=== PATIENT | female | born 1985 | race Caucasian/White ===

== ENCOUNTER 2019-09-01 07:32 | Inpatient (IN) ==
[2019-09-01] MEDS ORDERED: OXYTOCIN 30 UNITS/500 ML BAG IV PRN ×3 (08:02→10:35)
[2019-09-01] MEDS ORDERED: LACTATED RINGER'S 1,000 ML IV PRN (08:02)
[2019-09-01 08:43] LABS: Hematocrit (blood only) 38.5 % (37-47); Hemoglobin 12.6 g/dL (12.0-16.0); Mean Corpuscular Hemoglobin 27.6 pg (25-34); Mean Corpuscular Volume 84.2 fL (80-100); RDW Coefficient of Variation 15.2 % (11.5-14.5); Red Blood Count 4.57 M/uL (4.2-5.4); White Blood Count 14.19 K/uL (4.8-10.8)
[2019-09-01 09:07] LABS: Mean Corpuscular Hgb Conc 32.7 g/dL (32-36); Platelet Count 133 K/uL (130-400); Platelet Estimate Decreased (Normal)
[2019-09-01] MEDS ORDERED: OXYCODONE/ACETAMINOPHEN 5mg/325mg TAB PO PRN (10:35)
[2019-09-01] MEDS ORDERED: IBUPROFEN 600 MG TAB PO PRN (10:35)
[2019-09-01] MEDS ORDERED: BENZOCAINE 20% AER SPR 82.5 GM CAN EXT PRN (10:35)
[2019-09-01] MEDS ORDERED: ACETAMINOPHEN W/CODEINE #3 1 TAB PO PRN (10:35)
[2019-09-01] MEDS ORDERED: bisacodyL 10 MG SUPP PR PRN (10:35)
[2019-09-01] MEDS ORDERED: DIPHTHERIA/TETANUS/PERTUSSIS 0.5 ML SYR/VIAL IM ONE (10:35)
[2019-09-01] MEDS ORDERED: SUPERCREAM 0.870% 15 GM JAR EXT PRN (10:35)
[2019-09-01] MEDS ORDERED: ACETAMINOPHEN 325 MG TAB PO PRN (10:35)
[2019-09-01] MEDS ORDERED: HYDROCORTISONE ACETATE 25 MG SUPP PR PRN (10:35)
--- NOTE | 2019-09-01 11:49 | Delivery Summary ---
DATE OF OPERATION: 09/01/2019 She is a 7, para 4. Blood type is O positive, group B strep negative, was admitted in spontaneous labor at 39 weeks and 2 days. She was 5-6 cm with bulging membranes. She delivered unmedicated. She did receive some IV Pitocin augmentation towards the end. At about 6 cm, membranes were ruptured surgically. Fluid was clear. She then had spontaneous contractions, but they were a good 5 minutes apart. We then started Pitocin augmentation at 2 mU and with that her contractions became closer. She went to full dilatation and delivered the infant via direct occiput anterior position over an intact perineum. There was a nuchal cord x2, which was reduced over the head. Cord was then clamped, cut by the father after we let the cord pulsate for 1 full minute before clamping. Following this, cord blood was taken. With IV Pitocin running, the placenta was removed intact. She had a small first-degree laceration and a laceration of the right labia minora. First-degree laceration was repaired with a deep suture to approximate the bulbocavernosus muscle, separate deep suture to approximate the perineal body, a running subcuticular suture to approximate the perineal skin edges. This was done after the area was infiltrated with local. Also the labia minora was infiltrated with local and this was repaired with a running Vicryl suture. Following this, a Byrd catheter was used to empty the bladder. Hemostasis was excellent. The patient tolerated the procedure well. Estimated blood loss was under 100 mL. Apgars were deferred to the nurses. I attest to the content of the Intraoperative Record and any orders documented therein. Any exception s are noted below.
[2019-09-01] MEDS: DOCUSATE SODIUM 100 MG CAP PO SCH (20:19)
[2019-09-02 06:37] LABS: Hematocrit (blood only) 35.5 % (37-47); Hemoglobin 11.7 g/dL (12.0-16.0); Mean Corpuscular Hemoglobin 27.7 pg (25-34); Mean Corpuscular Volume 84.1 fL (80-100); RDW Coefficient of Variation 15.3 % (11.5-14.5); RDW Standard Deviation 47.1 fL (36.4-46.3); Red Blood Count 4.22 M/uL (4.2-5.4); White Blood Count 13.24 K/uL (4.8-10.8)
[2019-09-02 06:48] LABS: Platelet Count 132 K/uL (130-400)
[2019-09-02 06:50] LABS: Platelet Estimate Normal (Normal)
[2019-09-02] MEDS: DOCUSATE SODIUM 100 MG CAP PO SCH (07:58)
[2019-09-02] MEDS ORDERED: PRENATAL VITAMIN 1 TAB PO SCH (08:00)
--- NOTE | 2019-09-02 12:12 | Obstetrical Progress Note ---
Date of Service September 02, 2019 Assessment & Plan Admission and Anticipated Discharge Date Admission Date: September 01, 2019 Physical Exam Physical Exam: abdomen soft and non tender no calf tenderness ambulating well vaginal bleeding scant hgb 11.7 patient requests discharge Results & Data ([facility]) Vital Signs (Past 12 Hours) Vital Signs Temp Pulse Resp BP Pulse Ox 09/02/19 07:55 36.7 C 66 16 106/70 99 09/02/19 04:45 36.6 C 80 18 107/69 95
[2019-09-02] MEDS ORDERED: bisacodyL 5 MG TABEC PO SCH (20:00)
== END 2019-09-02 13:40 | disposition home or self-care (01) | DRG 807 ==
LOC: OPB 07:32 → 4S1 07:35 → 4S2 16:51

== ENCOUNTER 2021-08-19 17:17 | Inpatient (IN) ==
[~2021-08-19 17:17] MED LIST: CITRIC ACID/SODIUM CITRATE 15 ML UDC PO SCH; cefOXitin 2,000 MG in DEXTROSE 5% 50 ML IV SCH
[2021-08-19 18:50] LABS: Appearance Urine Cloudy (Clear); Bacteria Urine Automated 4+ (Negative); Bilirubin Urine Negative (Negative); Blood Urine Negative (Negative); Color Urine Yellow; Epithelial Cell Urine Auto >30 /lpf (0-5); Glucose Urine UA Negative (Negative); Ketones Urine Negative (Negative); Leukocyte Esterase Urine 2+ (Negative); Nitrite Urine Negative (Negative); Protein Urine Negative (Negative); RBC Urine Automated 0-4 /hpf (0-4); Specific Gravity Urine 1.007 (1.000-1.030); Urobilinogen Urine Negative (Negative)
[2021-08-19 19:25] LABS: Hematocrit (blood only) 34.9 % (37-47); Hemoglobin 11.3 g/dL (12.0-16.0); Mean Corpuscular Hemoglobin 26.9 pg (25-34); Mean Corpuscular Volume 83.1 fL (80-100); RDW Standard Deviation 45.3 fL (36.4-46.3); White Blood Count 11.07 K/uL (4.8-10.8)
[2021-08-19 19:31] LABS: Albumin Level 3.3 gm/dl (3.4-5.0); BUN Creatinine Ratio 11.6 (10-20); Bilirubin,Total 0.3 mg/dl (0.2-1.0); Calcium 8.9 mg/dl (8.5-10.1); Creatinine Clr Calc Pharmacy 123.8 ml/min; Est GFR (African American) 131.6 ml/min; Est GFR (Non-African American) 113.6 ml/min; Globulin 3.4 gm/dl (2.5-4.0); Potassium 3.8 mmol/L (3.5-5.1); Total Protein 6.7 gm/dl (6.0-8.3)
[2021-08-19 19:45] LABS: Mean Corpuscular Hgb Conc 32.4 g/dL (32-36); Platelet Count 107 K/uL (130-400)
[2021-08-19 19:46] LABS: Platelet Estimate Decreased (Normal)
[2021-08-19 20:03] LABS: Rubella IgG Ab Immune (Immune)
--- NOTE | 2021-08-19 20:04 | Ultrasound Report ---
US OB limited HISTORY: 35 years-old Female Limited care oligohydramnios COMPARISON: None TECHNIQUE: Multiple real-time sonographic images of the deep pelvic structures were obtained transabd ominally assessing grayscale appearance FINDINGS: HOLLIS of 3.2. Single living intrauterine gestation is in cephalic positioning, heart rate measure d at 135 bpm. Abdominal circumference is 37.3 cm, correlating with estimated gestational age of 41 we eks 2 days. Femur length is 7.2 cm correlating with estimated gestational age of 40 weeks and 0 days. BPD is 10.0 cm correlating with estimated gestational age of 40 weeks and 6 days. IMPRESSION: 1. Single living intrauterine gestation in cephalic positioning. 2. Oligohydramnios, HOLLIS of 3.2. ACT 112: Negative or not required by law. The above report was generated using voice recognition software. It may contain grammatical, syntax o r spelling errors. Electronically signed by: Ronald Doyle M.D. 08/19/2021 8:02 PM
[2021-08-19] MEDS ORDERED: ERYTHROMYCIN OP OINT 1 GM PKT ONE (20:29)
[2021-08-19] MEDS ORDERED: PHYTONADIONE PED 1 MG/0.5ML AMP/SYRG ONE (20:29)
[2021-08-19] MEDS ORDERED: HEPATITIS B VACCINE RECOMBIN 10 MCG/0.5 ML VIAL IM ONE (20:30)
[2021-08-19] MEDS ORDERED: LACTATED RINGER'S 1,000 ML IV SCH ×2 (20:30→22:45)
[2021-08-19 20:41] LABS: ALC (manual) 2.99 K/uL (1.2-3.4); ANC (manual) 7.42 K/uL (1.4-6.5); Eosinophils # (manual) 0.22 K/uL (0-0.5); Lymphocytes # (manual) 2.99 K/uL (1.2-3.4); Monocytes # (manual) 0.44 K/uL (0.11-0.59); Neutrophils # (manual) 7.42 K/uL (1.4-6.5)
--- NOTE | 2021-08-19 20:43 | History and Physical Report ---
DATE OF ADMISSION: 08/19/2021 CHIEF COMPLAINT: Severe hip and back pain. Intrauterine at 39+ weeks' gestation. Desire fo r permanent sterilization and very little care. HISTORY OF PRESENT ILLNESS: The patient is a 35-year-old 7, para 4, who has had 2 spontaneou s ABs. Her due date is 08/25/2021. Her last visit in the office was at about 20 weeks and she had n o blood work done at all. Her obstetrical history is as follows: 2007, she was induced at a bout 36-37 weeks, it was a 48-hour induction with 3-hour push; the induction was due to suspected mac rosomia and at that gestation, she had a male , weight 7 pounds 12 ounces. 2010, she had a spo ntaneous vaginal delivery at 40 weeks, 7 pounds 11 ounces. She labored for 9 hours, pushed for 30 mi nutes. 2014, she had a girl, 6 pounds, 11 ounces. She was in labor for 4 hours. She went into labo r at 38 weeks and pushed for 5 minutes. Last child was 2020, 7 pounds, 12 ounces, induction at 39+ we eks, labor was 4-5 hours, pushed about 5 minutes. The patient requests permanent sterilization. She has been informed of the procedure, tubal ligation, including the fact that this procedure is intend ed to result in permanent and irreversible sterility, that there can be a failure resulting in ectopi c pregnancies or intrauterine pregnancies despite having had her tubes tied. We also discussed a tri al of a vaginal delivery versus with tubal. She had an ultrasound done the day that she was admitted. I was present at the end of the ultrasound and the ultrasound was complicated by oligohyd ramnios with an HOLLIS of less than 4 and an estimated weight of 10 pounds 6 ounces. She was offe red a trial of labor. We also discussed possibility of shoulder dystocia and the complications it co uld bring. The patient has decided that she wants her tubes tied. She does not want any more childre n. She is having severe pain in her lower back and she feels it will be difficult to tolerate labor and she elected for a primary section with bilateral tubal ligation. PAST MEDICAL HISTORY: She got 4 children in good health. No known drug allergies. No history of rh eumatic fever, heart disease, heart murmur, diabetes, tuberculosis. PAST SURGICAL HISTORY: No previous surgery. SOCIAL HISTORY: She is a half a pack a day smoker for over 14 years. She does not drink alcohol at all. She works at home. FAMILY HISTORY: Mom 67, heavy smoker, has chronic obstructive pulmonary disease and early diabetes. Father is 62 years old, is an alcoholic. She has 3 brothers, 2 sisters in good health. REVIEW OF SYSTEMS: HEAD: No symptoms of frequent or severe headaches. EYES: No symptoms of blurred vision or double vision. EARS: No symptoms of frequent ear infections, difficulty hearing. NOSE: No symptoms of frequent nosebleeds or difficulty breathing through her nose. THROAT: No symptoms of frequent or severe sore throats or difficulty swallowing. RESPIRATORY SYSTEM: No history of asthma, chest pain, or shortness of breath. PHYSICAL EXAMINATION: GENERAL: Well-developed, well-nourished 35-year-old white female, alert, oriented x3, cooperative, i n no acute distress, appeared her stated age. EYES: Conjunctivae pink. Sclerae white, no evidence of jaundice. EARS: Had normal light reflex bilaterally. NOSE: Had normal mucosa. Septum is midline. There were no polyps. THROAT: No erythema or evidence of infection. Teeth are in good state of repair. HEAD: Normocephalic, normal distribution of hair. NECK: Supple. Trachea midline. Thyroid is not enlarged. There is no adenopathy appreciated. Both carotids are of good intensity. CHEST: Clear to auscultation and percussion. No wheezes, rales or rhonchi appreciated. HEART: Had regular rhythm. S1 and S2 are normal. BREASTS: Normal. ABDOMEN: Large, estimated weight was over 9 pounds. There was no CVA tenderness, no calf tend erness. PELVIC: Vertex presentation, cervix was posterior, 3+ cm dilated, about 50% effaced. Cervix was fir m. IMPRESSION OF THIS CASE: A long-term smoker, oligohydramnios, intrauterine over 39 weeks' gestation, desire for permanent sterilization, no care, suspected macrosomia. Job ID: [id number]
--- NOTE | 2021-08-19 20:58 | Anesthesiology Consultation ---
Date of Service August 19, 2021 Assessment & Plan Chart Review Chart Review: Acceptable Risk for Surgery and Patient NOT seen in Pre Admission Testing Consults Requested none ASA [id number] Proposed Anesthesia Anesthesia Type: Spinal Risk / Benefits Reviewed With: PT / POA / Parent / Guardian, Accepts Plan and Informed Consent Obtained History Surgery Operation Date: 08/19/21 21:00 Proposed Procedures p Section in LD - Carlos Alberto Christine MD Height/Weight Height: 5 ft 3 in Weight: 92.079 kg Allergies Allergy/AdvReac Type Severity Reaction Status Date / Time No Known Allergies Allergy Unverified 09/01/19 07:50 Medications Home Medications Medication Instructions Recorded Confirmed Last Taken vitamins-iron fumarate 27 1 tab PO DAILY 09/01/19 08/19/21 08/19/21 mg iron-folic acid 0.8 mg tablet ( Vitamin) Active Medications Generic Name Dose Route Start Last Admin Trade Name Freq PRN Reason Stop Dose Admin Lactated Ringer's 1,000 mls @ 999 mls/hr 08/19/21 20:30 08/19/21 20:33 Lr IV 08/19/21 21:30 999 mls/hr .Q1H1M CHLOÉ Administration NPO Date Last Intake of Fluids: 08/19/21 Time Last Intake of Fluids: 20:00 Date Last Intake of Solids: 08/19/21 Time Last Intake of Solids: 10:00 Past Medical History Medical History (Updated 08/19/21 @ 17:43 by Chula Vega RN) Hx of goiter No pertinent past medical history Scheuermann disease Scoliosis Exercise / Class Metabolic Activity II 4-5 Yardwork/Stairs/Walk up hill Past Anesthesia History No Hx of Anesthesia Complications and No Family Hx of Anesthesia Complications History of PONV No Hx of PONV and No Hx of Motion Sickness Social History Smoking Status: Current every day smoker tobacco type: cigarettes Hx Alcohol Use: No Hx Substance Use: No Physical Exam Vital Signs Last Vital Signs Temp 36.8 C 08/19/21 19:04 Pulse 86 08/19/21 19:15 Resp 18 08/19/21 19:04 BP 120/68 08/19/21 19:15 ENMT Mouth: no dentition abnormality Thyromental Distance: > or= 3.5 Finger Breadths Mallampati Class: II Neck normal visual inspection Respiratory normal respiratory effort Auscultation: lungs clear to auscultation bilaterally Cardiovascular Rate/Rhythm: regular rate and regular rhythm Psychiatric Orientation: alert Testing Laboratory Results 08/19/21 18:49 08/19/21 18:49 Urine Color Yellow 08/19/21 18:35 Urine Appearance Cloudy (Clear) A 08/19/21 18:35 Urine pH 6.0 (4.5-7.5) 08/19/21 18:35 Ur Specific [place] 1.007 (1.000-1.030) 08/19/21 18:35 Urine Protein Negative (Negative) 08/19/21 18:35 Urine Glucose (UA) Negative (Negative) 08/19/21 18:35 Urine Ketones Negative (Negative) 08/19/21 18:35 Urine Nitrite Negative (Negative) 08/19/21 18:35 Ur Leukocyte Esterase 2+ (Negative) H 08/19/21 18:35 Urine WBC (Auto) 10-30 /hpf (0-5) H 08/19/21 18:35 Urine RBC (Auto) 0-4 /hpf (0-4) 08/19/21 18:35 U Hyaline Cast (Auto) 1-5 /lpf (0-5) 08/19/21 18:35 U Epithel Cells (Auto) >30 /lpf (0-5) H 08/19/21 18:35 Urine Bacteria (Auto) 4+ (Negative) H 08/19/21 18:35 Blood Type O Positive 08/19/21 18:49
[2021-08-19] MEDS ORDERED: MoRPHine SULFATE PF 1 MG/ML 10 ML AMP/VIAL ONE (21:00)
[2021-08-19] MEDS ORDERED: LIDOCAINE/EPINEPHRINE 1% 20 ML VIAL ONE (21:05)
[2021-08-19] MEDS ORDERED: ONDANSETRON INJ 2 MG/ML 2 ML VIAL ONE (21:07)
[2021-08-19] MEDS ORDERED: OXYTOCIN 10 UNITS/ML 10ML VIAL ONE (21:07)
[2021-08-19] MEDS ORDERED: KETOROLAC 30 MG/ML VIAL ONE (22:21)
[2021-08-19] MEDS ORDERED: NALOXONE HCL 0.4 MG/1 ML VIAL/CARP IV PRN (22:31)
[2021-08-19] MEDS ORDERED: MoRPHine SULFATE PF 1 MG/ML 10 ML AMP/VIAL INT SPINAL ONE (22:31)
[2021-08-19] MEDS ORDERED: HYDROmorphone INJ 0.5 MG/0.5 ML SYR IV PRN (22:31)
[2021-08-19] MEDS ORDERED: ONDANSETRON INJ 2 MG/ML 2 ML VIAL IV PRN (22:31)
[2021-08-19] MEDS ORDERED: NALBUPHINE HCL INJ 10 MG/ML AMP IV PRN (22:31)
[2021-08-19] MEDS ORDERED: PROMETHAZINE HCL 6.25 MG in SODIUM CHLORIDE 0.9% 50 ML IV PRN (22:31)
[2021-08-19] MEDS ORDERED: diphenhydrAMINE 50 MG/ML VIAL IV PRN (22:31)
[2021-08-19] MEDS ORDERED: ePHEDrine sulfate 50 MG/ML AMP IV PRN (22:31)
[2021-08-19] MEDS ORDERED: MoRPHine SULFATE 2 MG/ML CARP IV PRN (22:31)
[2021-08-19] MEDS ORDERED: NALOXONE HCL 0.08 MG in SYRINGE 1.8 ML IV PRN (22:31)
[2021-08-19] MEDS ORDERED: MEPERIDINE HCL 25 MG/ML CARP/VIAL IV PRN (22:31)
[2021-08-19] MEDS ORDERED: KETOROLAC 30 MG/ML VIAL IV PRN (22:31)
[2021-08-19] MEDS ORDERED: LACTATED RINGER'S 500 ML IV PRN (22:31)
[2021-08-19] MEDS ORDERED: NALOXONE HCL 1 MG in SODIUM CHLORIDE 0.9% 1000ML 1,000 ML IV PRN (22:31)
[2021-08-19] MEDS ORDERED: SENNA 8.6 MG TAB PO PRN (22:32)
[2021-08-19] MEDS ORDERED: BENZOCAINE 20% AER SPR 82.5 GM CAN EXT PRN (22:32)
[2021-08-19] MEDS ORDERED: HYDROCORTISONE ACETATE 25 MG SUPP PR PRN (22:32)
[2021-08-19] MEDS ORDERED: DIPHTHERIA/TETANUS/PERTUSSIS 0.5 ML SYR/VIAL IM ONE (22:32)
[2021-08-19] MEDS ORDERED: MAGNESIUM HYDROXIDE SUSP 30 ML UDC PO PRN (22:32)
--- NOTE | 2021-08-19 22:32 | Post Operative Brief Note ---
Immediate Post Op Note v1 Date of Surgery August 19, 2021 Pre & Post Diagnosis Operation Date: 08/19/21 21:00 Pre-Op Diagnosis: Macrosomia Oligohydramnios Bilateral tubal ligation Post-Op Diagnosis: Same I identified the patient and participated in the time-out.: Yes Procedure Operation Date: 08/19/21 21:00 Actual Procedures p Section in LD for [facility] at 2133(Bilateral) - Carlos Alberto Christine MD Surgeon Carlos Alberto Christine MD Asic Engineer Dr Walker Estimated Blood Loss 600 Findings Consistent with Post-Op Diagnosis macrosomic male Drains Garcia Catheter (garcia placed in OR. Draining clear yellow urine, to be monitored during procedure by anesthesia ) Anesthesia Type Spinal Complications none
[2021-08-19] MEDS ORDERED: NO NARCOTICS OR SEDATIVES SCH (22:45)
[2021-08-19] MEDS ORDERED: DC INTRASPINAL MORPHINE SCH (22:45)
[2021-08-19] MEDS ORDERED: SODIUM CHLORIDE 0.9% 1000ML 1,000 ML IV SCH (22:45)
[2021-08-19] MEDS ORDERED: Nursing to Pharmacy Communication SCH (23:00)
[2021-08-19] MEDS: OXYTOCIN 20 UNITS in LACTATED RINGER'S 1,000 ML IV SCH (23:28)
--- NOTE | 2021-08-19 23:35 | Operative Report (OR) ---
DATE OF PROCEDURE: 08/19/2021. PROCEDURE: Primary low segment section, bilateral tubal ligation. INDICATIONS FOR SURGERY: Desire for permanent sterilization, macrosomia, oligohydramnios, pelvic joanne n. PREOPERATIVE DIAGNOSES: Intrauterine at 39+ weeks' gestation, macrosomia by ultrasound, ol igohydramnios and very little care. POSTOPERATIVE DIAGNOSES: Intrauterine at 39+ weeks' gestation, macrosomia by ultrasound, o ligohydramnios and very little care. Delivered a 9 pound 6 ounce male. SURGEON: Deann Christine MD. HEAT CURER: Brandon Walker MD. ESTIMATED BLOOD LOSS: 600 mL ANESTHESIA: Spinal. OPERATIVE FINDINGS AND PROCEDURE: The patient was brought to the OR table, correctly identified by a rmband and conversation. Spinal anesthesia was administered. She was placed on the OR table and keira quate level was obtained. Byrd catheter was inserted into the bladder, connected to gravity drainag e. Compression stockings were applied. Lower abdomen was painted with an alcohol based sterilizing solution, was allowed to dry for 3 minutes and draped in the usual sterile fashion. Pfannenstiel incision was made and carried down to the anterior fascia by sharp dissection. Hemostas is was secured by electrocauterization. Fascia was incised transversely, from the underlyi ng muscle by blunt and sharp dissection. Recti muscles were in the midline, exposing the p eritoneum, which was carefully raised and entered. Lower uterine segment was exposed. Incision was made above the vesicouterine fold. Lower uterine segment was scored with a knife, then entered blunt ly with scissors. A very small amount of amniotic fluid was seen. Incision was extended laterally. A vectis retractor was applied to the head. With fundal pressure, the 's head was delivered. I nfant was suctioned through the mouth and the nose. Shoulders and body were delivered. Cord blood w as stripped and then cord was clamped and cut. The was shown to the mother and then attended to by the .net programmer who was scrubbed and present at the time of delivery. Cord blood was taken. Placenta was removed manually. Uterus, tubes, and ovaries were brought out through the incision. Ut erine cavity was wiped clean with a clean sponge. Lower uterine defect was approximated in 3 layers; heavy chromic was used to approximate the muscular layer, the fascial layer was approximated over th is with a heavy duty Vicryl. Two interrupted [id number] sutures of Vicryl were used to complete the hemostasis from areas on the approximation that were leaking. After that, the peritoneal edges w ere restored with a running 3-0 chromic. Pelvis was cleansed of all blood clots and debris. Tubal ligation was performed. Each tube was grasped in the midportion, was ligated proximally and di stally. Portion between the 2 sutures was infiltrated with local with epinephrine. Incision was made , opened up the broad ligament and tube was brought out through the broad ligament and then excised. Then, the broad ligament was closed front to back, burying the proximal stump of this tube and exter iorizing the distal stump. This was done to both the right and left fallopian tube. Uterus, tubes, and ovaries were reinserted into the abdominal cavity. The lower incision was checked and found to b e hemostatic. Careful anatomical approximation was performed. The peritoneum was closed with a bridget ress suture of chromic catgut. Recti muscles were approximated with interrupted [id number]-[id number] sutu re chromic catgut. Fascia was closed with continuous interlocking suture of Vicryl on each side and tied in the midline. Subcutaneous was approximated with a running plain and skin edges were approxim ated with staple clips. The patient tolerated the procedure well and left the OR in good condition. Job ID: [id number]
--- NOTE | 2021-08-20 01:18 | Anesthesiology Progress Note ---
Date of Service August 20, 2021 Anesthesia Post Procedure Vital Signs Vital Signs: Temp Pulse Resp BP Pulse Ox 08/20/21 00:36 101/65 08/20/21 00:35 18 08/20/21 00:31 80 100 08/20/21 00:26 58 L 91 08/20/21 00:21 66 100 08/20/21 00:16 79 100 08/20/21 00:11 70 100 08/20/21 00:06 74 100 08/20/21 00:05 67 18 103/58 L 08/20/21 00:01 76 100 08/19/21 23:56 70 100 08/19/21 23:51 66 100 08/19/21 23:46 81 100 08/19/21 23:41 70 100 08/19/21 23:36 71 100 08/19/21 23:35 18 08/19/21 23:31 64 100 08/19/21 23:29 68 100/70 08/19/21 23:26 76 100 08/19/21 23:25 18 08/19/21 23:22 72 101/64 08/19/21 23:21 76 100 08/19/21 23:16 66 100 08/19/21 23:15 18 08/19/21 23:11 68 100 08/19/21 23:09 74 99/67 L 08/19/21 23:06 77 100 08/19/21 23:05 18 08/19/21 23:01 72 100 08/19/21 23:00 72 105/74 08/19/21 22:56 72 100 08/19/21 22:55 18 08/19/21 22:51 63 100 08/19/21 22:49 78 101/64 08/19/21 22:46 66 106/58 L 100 08/19/21 22:45 18 08/19/21 22:41 75 100 08/19/21 22:36 68 100 08/19/21 22:35 36.5 C 71 18 93/66 L 08/19/21 22:31 73 100 08/19/21 19:15 86 120/68 08/19/21 19:04 36.8 C 18 08/19/21 17:47 36.7 C 85 20 116/77 08/19/21 17:34 36.7 C 85 20 116/77 Pain Intensity Lower Back: Pain Intensity: 10 Transfer of Care Handoff Completed per policy Notes Mental Status: alert / awake / arousable Nausea / Vomiting: adequately controlled Pain: adequately controlled Airway Patency, RR, SpO2: stable & adequate BP & HR: stable & adequate Hydration State: stable & adequate Neuraxial Anesthesia: was administered and sensory block is resolving Anesthetic Complications: no major complications apparent
[2021-08-20 06:52] LABS: Mean Corpuscular Hgb Conc 32.4 g/dL (32-36)
[2021-08-20 06:57] LABS: Hematocrit (blood only) 29.6 % (37-47); Hemoglobin 9.6 g/dL (12.0-16.0); Mean Corpuscular Hemoglobin 26.9 pg (25-34); Mean Corpuscular Volume 82.9 fL (80-100); RDW Coefficient of Variation 14.9 % (11.5-14.5); RDW Standard Deviation 45.4 fL (36.4-46.3); Red Blood Count 3.57 M/uL (4.2-5.4); White Blood Count 12.49 K/uL (4.8-10.8)
[2021-08-20 07:25] LABS: Platelet Count 92 K/uL (130-400)
[2021-08-20 07:26] LABS: Basophils # (auto) 0.01 K/uL (0-0.2); Basophils % (auto) 0.1 %; Eosinophils # (auto) 0.19 K/uL (0-0.5); Eosinophils % (auto) 1.5 %; Immature Granulocytes # (auto) 0.05 K/uL (0.00-0.02); Immature Granulocytes % (auto) 0.4 %; Lymphocytes # (auto) 2.26 K/uL (1.2-3.4); Lymphocytes % (auto) 18.1 %; Monocytes # (auto) 0.63 K/uL (0.11-0.59); Neutrophils # (auto) 9.35 K/uL (1.4-6.5); Neutrophils % (auto) 74.9 %
[2021-08-20] MEDS: DOCUSATE SODIUM 100 MG CAP PO SCH ×2 (08:18→20:22)
[2021-08-20] MEDS: SIMETHICONE 80 MG CHEW PO SCH ×4 (08:18→20:22)
[2021-08-20] MEDS: FERROUS SULFATE 325 MG TAB PO SCH (08:19)
[2021-08-20] MEDS: PRENATAL VITAMIN 1 TAB PO SCH (08:19)
--- NOTE | 2021-08-20 08:56 | Obstetrical Progress Note ---
Date of Service August 20, 2021 Assessment & Plan Admission and Anticipated Discharge Date Admission Date: August 19, 2021 Subjective abdomen soft and non tender bandage is dry no calf tenderness urine clear passing flatus vaginal bleeding scant hgb 9.6 Results & Data ([facility]) Vital Signs (Past 12 Hours) Vital Signs Temp Pulse Pulse Resp BP BP Pulse Ox 08/20/21 08:25 16 95 08/20/21 07:30 36.9 C 76 16 98/68 L 97 08/20/21 05:00 36.7 C 80 16 99/65 L 99 08/20/21 03:20 16 100 08/20/21 02:16 18 99 08/20/21 01:42 08/20/21 00:50 18 100 08/20/21 00:36 101/65 08/20/21 00:35 18 08/20/21 00:31 80 100 08/20/21 00:26 58 L 91 08/20/21 00:21 66 100 08/20/21 00:16 79 100 08/20/21 00:11 70 100 08/20/21 00:06 74 100 08/20/21 00:05 67 18 103/58 L 08/20/21 00:01 76 100 08/19/21 23:56 70 100 08/19/21 23:51 66 100 08/19/21 23:46 81 100 08/19/21 23:41 70 100 08/19/21 23:36 71 100 08/19/21 23:35 18 08/19/21 23:31 64 100 08/19/21 23:29 68 100/70 08/19/21 23:26 76 100 08/19/21 23:25 18 08/19/21 23:22 72 101/64 08/19/21 23:21 76 100 08/19/21 23:16 66 100 08/19/21 23:15 18 08/19/21 23:11 68 100 08/19/21 23:09 74 99/67 L 08/19/21 23:06 77 100 08/19/21 23:05 18 08/19/21 23:01 72 100 08/19/21 23:00 72 105/74 08/19/21 22:56 72 100 08/19/21 22:55 18 08/19/21 22:51 63 100 08/19/21 22:49 78 101/64 08/19/21 22:46 66 106/58 L 100 08/19/21 22:45 18 08/19/21 22:41 75 100 08/19/21 22:36 68 100 08/19/21 22:35 36.5 C 71 18 93/66 L 08/19/21 22:31 73 100 Pulse Ox 08/20/21 08:25 08/20/21 07:30 08/20/21 05:00 08/20/21 03:20 08/20/21 02:16 08/20/21 01:42 100 08/20/21 00:50 08/20/21 00:36 08/20/21 00:35 08/20/21 00:31 08/20/21 00:26 08/20/21 00:21 08/20/21 00:16 08/20/21 00:11 08/20/21 00:06 08/20/21 00:05 08/20/21 00:01 08/19/21 23:56 08/19/21 23:51 08/19/21 23:46 08/19/21 23:41 08/19/21 23:36 08/19/21 23:35 08/19/21 23:31 08/19/21 23:29 08/19/21 23:26 08/19/21 23:25 08/19/21 23:22 08/19/21 23:21 08/19/21 23:16 08/19/21 23:15 08/19/21 23:11 08/19/21 23:09 08/19/21 23:06 08/19/21 23:05 08/19/21 23:01 08/19/21 23:00 08/19/21 22:56 08/19/21 22:55 08/19/21 22:51 08/19/21 22:49 08/19/21 22:46 08/19/21 22:45 08/19/21 22:41 08/19/21 22:36 08/19/21 22:35 08/19/21 22:31
[2021-08-20] MEDS: OXYTOCIN 20 UNITS in LACTATED RINGER'S 1,000 ML IV SCH (09:32)
[2021-08-20] MEDS ORDERED: PROMETHAZINE HCL 25 MG in SODIUM CHLORIDE 0.9% 50 ML IV PRN (16:31)
[2021-08-20] MEDS ORDERED: KETOROLAC 30 MG/ML VIAL IV PRN (16:31)
[2021-08-20] MEDS ORDERED: ONDANSETRON INJ 2 MG/ML 2 ML VIAL IV PRN (16:31)
[2021-08-20] MEDS ORDERED: MEPERIDINE HCL 50 MG/ML CARP IV PRN (16:31)
[2021-08-20] MEDS ORDERED: diphenhydrAMINE 50 MG/ML VIAL IV PRN (16:31)
[2021-08-20] MEDS ORDERED: diphenhydrAMINE Capsule 25 MG CAP PO PRN (16:31)
[2021-08-20] MEDS ORDERED: ZOLPIDEM TARTRATE 5 MG TAB PO PRN (16:31)
[2021-08-20] MEDS: IBUPROFEN 600 MG TAB PO PRN (18:28)
[2021-08-20] MEDS: oxyCODONE/ACETAMINOPHEN 5mg/325mg TAB PO PRN (18:32)
[2021-08-20] MEDS ORDERED: bisacodyL 5 MG TABEC PO SCH (20:00)
[2021-08-21] MEDS: IBUPROFEN 600 MG TAB PO PRN ×4 (00:37→20:03)
[2021-08-21] MEDS: oxyCODONE/ACETAMINOPHEN 5mg/325mg TAB PO PRN ×4 (00:37→20:03)
[2021-08-21 06:31] LABS: Hemoglobin 9.1 g/dL (12.0-16.0)
[2021-08-21] MEDS: SIMETHICONE 80 MG CHEW PO SCH ×4 (09:09→20:03)
[2021-08-21] MEDS: PRENATAL VITAMIN 1 TAB PO SCH (09:10)
[2021-08-21] MEDS: DOCUSATE SODIUM 100 MG CAP PO SCH ×2 (09:10→20:03)
[2021-08-21] MEDS: FERROUS SULFATE 325 MG TAB PO SCH (09:11)
--- NOTE | 2021-08-21 09:44 | Obstetrical Progress Note ---
Date of Service August 21, 2021 Assessment & Plan Admission and Anticipated Discharge Date Admission Date: August 19, 2021 Subjective abdomen soft and non tender incision is clean and dry no calf tenderness ambulating well passing flatus tolerating normal diet vaginal bleeding scant hgb 9.1 Results & Data ([facility]) Vital Signs (Past 12 Hours) Vital Signs Temp Pulse Resp BP Pulse Ox 08/21/21 07:30 37 C 89 18 109/74 99 08/21/21 00:00 36.8 C 80 18 103/69
[2021-08-21 12:28] LABS: HBSAG NON-REACTIVE (NON-REACTIVE)
[2021-08-21] MEDS ORDERED: bisacodyL 10 MG SUPP PR PRN (22:32)
[2021-08-22] MEDS: oxyCODONE/ACETAMINOPHEN 5mg/325mg TAB PO PRN ×5 (04:30→20:49)
[2021-08-22] MEDS: IBUPROFEN 600 MG TAB PO PRN ×5 (04:30→20:50)
[2021-08-22] MEDS: SIMETHICONE 80 MG CHEW PO SCH ×4 (08:18→20:49)
[2021-08-22] MEDS: FERROUS SULFATE 325 MG TAB PO SCH (08:18)
[2021-08-22] MEDS: PRENATAL VITAMIN 1 TAB PO SCH (08:20)
[2021-08-22] MEDS: DOCUSATE SODIUM 100 MG CAP PO SCH ×2 (08:20→20:49)
--- NOTE | 2021-08-22 08:54 | Obstetrical Progress Note ---
Date of Service August 22, 2021 Assessment & Plan Admission and Anticipated Discharge Date Admission Date: August 19, 2021 Subjective abdomen soft and non tender incision is clean and dry no calf tenderness ambulating well vaginal bleeding scant hgb Results & Data ([facility]) Vital Signs (Past 12 Hours) Vital Signs Temp Pulse Resp BP Pulse Ox 08/22/21 07:25 36.7 C 73 20 111/75 97 08/22/21 00:00 37.0 C 86 18 111/74
--- NOTE | 2021-08-22 17:02 | Psychiatric Consultation ---
Date of Consultation August 22, 2021 Impression / Recommendations Impression 35 yo female with remote dx of bipolar that could be adolescent with emergency personality do, regardless presentation over the past 15 years has been primarily depression with worsening anxiety in post period. (1) Depressive disorder: a restrial of a low dose of an SSRI seems appropriate and lowest risk given breast feeding, reviewed research around Zoloft and she was agreeable, assuming an ongoing prescriber could be identified. Would recommend 25 mg for first 2 weeks and monitor for activation, if tolerating well then 50 mg until 6 week post visit and repeat Sherwood depression scale. Therapy is also recommended. Given her MAVickie referrals were made. liaison to also work on more formal safety plan prior to discharge. Psych History Identifying Data 35 yo female lives in [place], admit 08/19/21 and delivered baby. Consult is by Dr. Christine for possible suicidal statement. Chief Complaint "Everything is good now, he's here". History of Present Illness Patient reportedly stopped attending appointments at 20 weeks. Patient's baby required some time in level 2 nursery. When away from her bedside she became distraught. Was upset her other children couldn't visit. Tearful at times around delivery and made a statement to a nurse that being apart from the baby made her "want to kill myself." She immediately clarified she did not want to self harm, tells me "I've always been sort of dramatic that way, that's now I ended up at the [facility] as a teenager." Apparently self injured at that time (age 13-17 yo) and required an inpatient hospitalization in 2007 at the [facility] "but that was forever ago". She previously reported she was diagnosed with bipolar disorder at that time but "I don't really believe it, I mainly get post an was anxious" She is a poor hisotrian with regards to past medication trials. She states that she never takes controlled substances but taht her PCP had her on an antidepressant daily that she can't recall. Also took Zoloft as a teen. She reports the house is busy and she was having hip pain so made it hard to get to appointments but very much wants to "love up on this baby" and would like to consider treatment including medication as she was "not mean to my other kids but with the post I just was somewhat passive or under engaged at times." Currently has baby's father for support (lives with his parents nearby to help care for their medical needs) and her mother will be staying with her for at least a week. She denies any substance use. She denies any symptoms of lanie of hypomania. She denies any legal issues. She completed the Sherwood Depression Scale (EPDS)=14 and scored for blaming herself unnecessarily, feeling anxious or worried for no good reason, sometimes not coping as well as usual, difficuly sleeping. She scored 2 on question 10 that sometimes has thoughts about harming herself she was clear that she is not actively suicidal. Allergies Allergy/AdvReac Type Severity Reaction Status Date / Time No Known Allergies Allergy Unverified 09/01/19 07:50 Home Medications Medication Instructions Recorded Confirmed Type vitamins-iron fumarate 27 1 tab PO DAILY 09/01/19 08/19/21 History mg iron-folic acid 0.8 mg tablet ( Vitamin) Family History mother likley depression Personal History Beliefs That Will Affect Care: None Patient History Medical History Hx of goiter No pertinent past medical history Scheuermann disease Scoliosis Social History Smoking Status: Current every day smoker Second Hand Exposure: No; Hx Alcohol Use: No Hx Substance Use: No Preferred Language: Korean Communication Ability: Effective Banking Manager Required: No Beliefs That Will Affect Care: None marital status: Current Living Situation: Family Current Living Situation Comment: Lives at home with kids ([facility] 1 /2, [place]-7, [facility]-11, [place]- 14) current occupational status: unemployed How many Children do You have: 5 Other Information That Helps Us Care for You: No Feels Safe at Home: Yes Safety Concerns: Feels Safe At This Time Assistive Devices: None Physical Exam Psychiatric: Orientation: alert and oriented x 3 Apperance: appropriately dressed and appropriately groomed Eye Contact: good eye contact Motor Behavior: no abnormal motor movements Speech: normal rate/rhythm/volume of speech Affect: euthymic affect Mood: + depressed mood Thought Process: goal directed thought process Thought Content: reality based without delusions Suicidal Thoughts: denies suicidal thoughts Homicidal Thoughts: denies homicidal thoughts Hallucinations: no auditory hallucinations and no visual hallucinations Cognition: attention grossly intact and language grossly intact Estimated Intelligence: consistent with education level Vital Signs (Past 24 Hours): Last Vital Signs Temp 36.7 C 08/22/21 15:20 Pulse 82 08/22/21 15:20 Resp 20 08/22/21 15:20 BP 124/78 08/22/21 15:20 Pulse Ox 98 08/22/21 15:20 Review of Systems All systems reviewed & are unremarkable except as noted in HPI & below Results & Data (PSY) Medications Administered Docusate Sodium (Docusate Sodium 100 Mg Cap) 100 mg PO DAILY@, CHLOÉ Stop: 09/19/21 07:59 Last Admin: 08/22/21 08:20 Dose: 100 mg Documented by: [id number] Admin: 08/21/21 20:03 Dose: 100 mg Documented by: [id number] Admin: 08/21/21 09:10 Dose: 100 mg Documented by: [id number] Admin: 08/20/21 20:22 Dose: 100 mg Documented by: [id number] Admin: 08/20/21 08:18 Dose: 100 mg Documented by: [id number] Ferrous Sulfate (Ferrous Sulfate 325 Mg Tab) 325 mg PO DAILY@08 CHLOÉ Stop: 09/19/21 07:59 Last Admin: 08/22/21 08:18 Dose: 325 mg Documented by: [id number] Admin: 08/21/21 09:11 Dose: 325 mg Documented by: [id number] Admin: 08/20/21 08:19 Dose: 325 mg Documented by: [id number] Ibuprofen (Ibuprofen 600 Mg Tab) 600 mg PO Q4H PRN PRN Reason: Pain Stop: 09/18/21 22:31 Last Admin: 08/22/21 12:47 Dose: 600 mg Documented by: [id number] Admin: 08/22/21 08:19 Dose: 600 mg Documented by: [id number] Admin: 08/22/21 04:30 Dose: 600 mg Documented by: [id number] Admin: 08/21/21 20:03 Dose: 600 mg Documented by: [id number] Admin: 08/21/21 13:39 Dose: 600 mg Documented by: [id number] Admin: 08/21/21 09:15 Dose: 600 mg Documented by: [id number] Admin: 08/21/21 00:37 Dose: 600 mg Documented by: [id number] Admin: 08/20/21 18:28 Dose: 600 mg Documented by: [id number] Oxycodone/Acetaminophen (Oxycodone/Acetaminophen 5mg/325mg Tab) 1 - 2 tab PO Q4H PRN PRN Reason: Pain Stop: 09/03/21 16:30 Last Admin: 08/22/21 12:47 Dose: 1 tab Documented by: [id number] Admin: 08/22/21 08:20 Dose: 1 tab Documented by: [id number] Admin: 08/22/21 04:30 Dose: 1 tab Documented by: [id number] Admin: 08/21/21 20:03 Dose: 1 tab Documented by: [id number] Admin: 08/21/21 13:40 Dose: 1 tab Documented by: [id number] Admin: 08/21/21 09:09 Dose: 1 tab Documented by: [id number] Admin: 08/21/21 00:37 Dose: 1 tab Documented by: [id number] Admin: 08/20/21 18:32 Dose: 1 tab Documented by: [id number] Prenat Multivit/[place]/Iron/Folic Ac ( Vitamin 1 Tab) 1 tab PO DAILY@08 CHLOÉ Stop: 09/19/21 07:59 Last Admin: 08/22/21 08:20 Dose: 1 tab Documented by: [id number] Admin: 08/21/21 09:10 Dose: 1 tab Documented by: [id number] Admin: 08/20/21 08:19 Dose: 1 tab Documented by: [id number] Simethicone (Simethicone 80 Mg Chew) 80 mg PO DAILY@08,13,17,21 CHLOÉ Stop: 09/19/21 07:59 Last Admin: 08/22/21 12:47 Dose: 80 mg Documented by: [id number] Admin: 08/22/21 08:18 Dose: 80 mg Documented by: [id number] Admin: 08/21/21 20:03 Dose: 80 mg Documented by: [id number] Admin: 08/21/21 19:47 Dose: Not Given Documented by: [id number] Admin: 08/21/21 13:37 Dose: 80 mg Documented by: [id number] Admin: 08/21/21 09:09 Dose: 80 mg Documented by: [id number] Admin: 07/05/22 20:22 Dose: 80 mg Documented by: [id number] Admin: 08/20/21 18:35 Dose: 80 mg Documented by: [id number] Admin: 08/20/21 12:21 Dose: 80 mg Documented by: [id number] Admin: 08/20/21 08:18 Dose: 80 mg Documented by: [id number] Coding Level of Care Code 32800 U Intl Hosp Care Lvl 2 Diagnoses Depressive disorder F32.A
[2021-08-23] MEDS: IBUPROFEN 600 MG TAB PO PRN ×2 (04:37→08:35)
[2021-08-23] MEDS: oxyCODONE/ACETAMINOPHEN 5mg/325mg TAB PO PRN ×2 (04:38→08:34)
--- NOTE | 2021-08-23 08:31 | Obstetrical Progress Note ---
Date of Service August 23, 2021 Assessment & Plan Admission and Anticipated Discharge Date Admission Date: August 19, 2021 Subjective abdomen soft and non tender incision is clean and dry no calf tenderness ambulating well vaginal bleeding scant hgb 9.1 Results & Data ([facility] Vital Signs (Past 12 Hours) Vital Signs Temp Pulse Resp BP Pulse Ox 08/22/21 22:58 36.9 C 75 18 110/74 95
[2021-08-23] MEDS: FERROUS SULFATE 325 MG TAB PO SCH (08:35)
[2021-08-23] MEDS: DOCUSATE SODIUM 100 MG CAP PO SCH (08:35)
[2021-08-23] MEDS: SIMETHICONE 80 MG CHEW PO SCH (08:35)
[2021-08-23] MEDS: PRENATAL VITAMIN 1 TAB PO SCH (08:35)
--- NOTE | 2021-08-23 18:30 | Discharge Summary (DS) ---
DATE OF ADMISSION: 08/19/2021 DATE OF DISCHARGE: 08/23/2021 HOSPITAL COURSE: Mrs. Crocker had been followed in our office for care and delivery; however, she did not do any of her blood work and we had not seen her since she had her 20-week ultrasound. S he called with symptoms of pelvic pain, decreased movement. [facility] We did her blood work, did her tests, hemoglobin, liver function tests; they were good. Did an ultrasound. Ultrasound showed an estimated weight of 10 pounds 6 ounces and essentiall y hardly any amniotic fluid. HOLLIS was 3 or under. Due to this estimated weight and the fact that we had no glucose screening or any long-term followup during her course, I discussed with the patient on the possibility of shoulder dystocia. The patient wanted to have her tubes tied anywa y, so we elected for a primary low segment section with bilateral tubal ligation. At the miguel a e of section, she had hardly any amniotic fluid, which confirmed the ultrasound findings. Baby's joshua vera weighed 9 pounds 6 ounces, which was a good pound, plus bigger than any child she had had before. Postoperatively, she did well. Her bowel sounds returned. Her hemoglobin went from 11.3 to 9.1. At one time, the nurses had some concern about her having some form of depression. Psych consult was o btained and she was discharged on Zoloft. At the time of discharge, she was ambulating well, eating w ell. Incision was clean and dry. Vaginal bleeding was minimal. She was given the usual postoperati ve instructions and told to return in a week for removal of mary and to call if she had any proble ms with heavy vaginal bleeding or elevated temperature. Job ID: [id number]
== END 2021-08-23 10:00 | disposition home or self-care (01) | DRG 785 ==
LOC: OPB 17:17 → 4S1 17:18 → 4E2 08-20 01:01